=== PATIENT | male | born 1960 | race Caucasian/White ===

== ENCOUNTER 2020-09-09 06:53 | Day surgery (SDC) | payer BC ==
[2020-09-09] MEDS ORDERED: Propofol 200 MG/20 ML SDV ONE (07:25)
[2020-09-09] MEDS ORDERED: Midazolam 1 MG/ML 2 ML SDV ONE (07:25)
[2020-09-09] MEDS ORDERED: fentaNYL 100 MCG/2 ML SDV ONE (07:25)
[2020-09-09] MEDS ORDERED: Sodium Chloride 0.9% 1,000 ML IV SCH (07:30)
[2020-09-09 09:40] VITALS: BP 142/83; PULSE 55
--- NOTE | 2020-09-09 13:30 | OR ---
DATE OF PROCEDURE: 09/09/2020 SURGEON: Petar Hauser MD PROCEDURE: Colonoscopy. FINDINGS: 1. Descending colon polyp, approximately 3 mm, completely removed using cold biopsy forceps. 2. Sigmoid colon polyp, approximately 1 cm, completely removed using endoscopic mucosal resection. COMPLICATIONS: None. PROGRAM DEVELOPMENT SPECIALIST: None. ANESTHESIA: MAC. PREOPERATIVE DIAGNOSIS: Screening colonoscopy. POSTOPERATIVE DIAGNOSIS: Screening colonoscopy. RISKS: Risks, benefits, alternatives, and limitations including but not limited to infection, bleeding, perforation, false positives and false negatives were explained to the patient and they wished to proceed. PROCEDURE IN DETAIL: The patient was placed in left lateral decubitus position. Digital rectal exam was performed without abnormality. Scope was introduced and advanced atraumatically to the ileocecal valve. A photo was taken of appendiceal orifice. The scope was brought back to the ascending, transverse, descending colon, and retroflexed. In the descending colon, a small polyp was identified and completely removed using cold biopsy forceps. With respect to the sigmoid colon polyp, this was endoscopic mucosal resection using elevation technique which include Kristi ink in all 4 quadrants. Subsequent resection with a hot snare wire device. No abnormal bleeding was noted after removal. The prep was acceptable, approximately 98% luminal surface could be seen. Greater than 8 minutes was spent removing the scope. The patient tolerated the procedure well. Petar Hauser MD /[id number]
== END 2020-09-09 09:58 | disposition home or self-care (01) ==
LOC: JP.SDS 06:53
PROVIDERS: ATTEND Surgery
DX: Z12.11 Encounter for screening for malignant neoplasm of colon (principal); D12.4 Benign neoplasm of descending colon; D12.5 Benign neoplasm of sigmoid colon; I10 Essential (primary) hypertension; G47.33 Obstructive sleep apnea (adult) (pediatric); E11.9 Type 2 diabetes mellitus without complications; Z88.8 Allergy status to other drugs, medicaments and biological substances
CPT/HCPCS: 45380; 45381; 45385; 45390; 88305; J2250; J2704; J3010; J7030